=== PATIENT | male | born 2000 | race Caucasian/White ===

== ENCOUNTER 2020-12-21 08:55 | Emergency (ER) | payer OTHER ==
[2020-12-21] MEDS ORDERED: TETANUS/DIPHTHERIA/PERTUSSIS 0.5 ML SYRINGE IM ONE (09:20)
[2020-12-21] MEDS ORDERED: LIDOCAINE 1%-EPI 1:100000 20 ML MDV SUBQ STA (09:20)
[2020-12-21] MEDS ORDERED: BACITRACIN ZINC OINT 1 PACKET TOP STA (09:21)
--- NOTE | 2020-12-21 10:47 | ED Physician Documentation ---
History of Present Illness - Stated complaint Stated Complaint: LT HAND LAC - Chief complaint Chief Complaint: Laceration - History obtained from History obtained from: Patient - Additonal information Additional information: 20-year-old man presents after slicing his hand with a ammonia box tender. He is right- hand dominant. Injury was to the left hand and occurred just prior to arrival. No other injuries. Sensory and motor intact. Review of Systems Skin: reports: Laceration (s) PD PAST MEDICAL HISTORY - Present Medications Home Medications: Ambulatory Orders Medication Instructions Recorded Confirmed No Known Home Medications 12/21/20 12/21/20 - Allergies Allergies/Adverse Reactions: Allergies Allergy/AdvReac Type Severity Reaction Status Date / Time No Known Drug Allergies Allergy Verified 12/21/20 09:11 PD ED PE NORMAL - Vitals Vital signs reviewed: Yes - General General: Alert and oriented X 3, No acute distress, Well developed/nourished - HEENT HEENT: Atraumatic, PERRL, EOMI - Derm Derm: Normal color, Warm and dry, Other (Laceration to left thenar eminence 3.5 cm. 2+ radial pulse. normal thumb and forefinger opposition as well as opposition of thumb and fifth. abd/adduction intact. normal sensation and cap refill) Results - Vitals Vitals: Vital Signs - 24 hr 12/21/20 09:11 Temperature 36.8 C Heart Rate 75 Respiratory 16 Rate Blood Pressure 167/92 H O2 Saturation 97 Oxygen O2 Source Room air Procedures - Laceration (location) Hand left Length in cm: 3.5 Wound type: Linear Neurovascular status: Sensory intact, Motor intact, Vascular intact Tendon involvement: Tendon intact Anesthesia: Lidocaine 1% with epi Wound preparation: Irrigated copiously NS Skin layer closure: Nylon, Size #-0 - enter number (4), Sutures - enter # (3) Other: Patient tolerated well, No complications, Neurovascular intact, Dressing applied, Tetanus booster given PD MEDICAL DECISION MAKING - ED course ED course: 20-year-old man presents with laceration, repaired without complication. Return precautions given. He will follow-up in 14 days. Departure - Departure Disposition: 01 Home, Self Care Clinical Impression: Laceration Condition: Good Instructions: ED Laceration All Comments: You are seen in the emergency department for laceration of your left hand. We applied 3 stitches which need to be removed in 14 days. Return to the emergency department if you have any signs of infection, new or worsening symptoms or other concerns. Forms: Activity restrictions
[2020-12-21 10:50] VITALS: BP 133/68
== END 2020-12-21 10:57 | disposition home or self-care (01) ==
LOC: ED 08:55
DX: S61.412A Laceration without foreign body of left hand, initial encounter (principal); W26.0XXA Contact with knife, initial encounter; Z23 Encounter for immunization
CPT/HCPCS: 12002; 90471; 90715; 99282; 99283; A9270

== ENCOUNTER 2021-06-22 08:00 | Outpatient (CLI) | payer OTHER | END 2021-06-22 23:59 | LOC: LAB.N 08:00 | PROVIDERS: ATTEND Physician Assistant | DX: R10.9 Unspecified abdominal pain (principal); Z20.822 Contact with and (suspected) exposure to COVID-19 ==